=== PATIENT | female | born 1945 | race Caucasian/White ===

== ENCOUNTER 2017-02-28 11:01 | Emergency (ER) | payer OTHER, MEDICARE ==
--- NOTE | 2017-02-28 11:29 | ED UPPER/LOWER EXTREMITY COMPL ---
History of Present Illness General Chief Complaint: Foot or Ankle Injury Stated Complaint: L FT INJURY Source: patient Exam Limitations: no limitations Vital Signs & Intake/Output Vital Signs & Intake/Output Vital Signs Date Time Temp Pulse Resp B/P B/P Pulse O2 O2 Flow FiO2 Mean Ox Delivery Rate 02/28 1254 97.6 81 18 149/69 94 Room Air 02/28 1104 98.1 102 18 126/94 95 Room Air Allergies Coded Allergies: MDX - Clarithromycin (From BIAXIN) (UNKNOWN 06/15/13) MDX - Codeine (CODEINE) (UNKNOWN 06/15/13) MDX - Contrast Media, Iodine Relate (Contrast Media, Iodine Related) (UNKNOWN ) MDX - Penicillin (PENICILLIN) (RASH 06/15/13) MDX - Rosuvastatin (From CRESTOR) (UNKNOWN 06/15/13) Triage Note: PT TO ED STATING SHE THINKS SHE BROKE HER LT FOOT. WAS WALKING UP A STEP AND FELT A CRACK. STATES IS UNABLE TO BEAR WEIGHT ON HER FOOT. Triage Nurses Notes Reviewed? yes Onset: Abrupt Duration: constant Timing: recent history Severity: severe Severity Numbers: 7 HPI: Patient is a 71-year-old female presents emergency room with concerns of left bottom of the foot pain that began acutely while patient was in a weight-bearing position while walking when she suddenly complained of pain last evening. Patient denies any mechanism injury twisting or trauma. Patient states that ambulation makes worse. Denies any ankle pain patient does state that she has "bad knees" and will need knee replacements however she denies any worsening pain to the knee patient denies any swelling rash paresthesia. Patient has been taking NSAIDs with mild relief of symptoms. Patient does state that she has had similar symptom in the past where she has had acute onset of plantar fascia tear. (MANNY PRO) Past History Travel History Traveled to [place] past 21 day No Medical History Any Pertinent Medical History? see below for history Psychiatric: bipolar disease, depression Surgical History Surgical History: non-contributory Psychosocial History What is your primary language [place] Tobacco Use: Never used Family History Hx Contributory? No (MANNY PRO) Review of Systems Review of Systems Constitutional: Reports: no symptoms. EENTM: Reports: no symptoms. Respiratory: Reports: no symptoms. Cardiovascular: Reports: no symptoms. Gastrointestinal/Abdominal: Reports: no symptoms. Genitourinary: Reports: no symptoms. Musculoskeletal: Reports: see HPI. Skin: Reports: no symptoms. Neurological/Psychological: Reports: no symptoms. Hematologic/Endocrine: Reports: no symptoms. Immunological: Reports: no symptoms. All Other Systems: Reviewed and Negative (MANNY PRO) Physical Exam Physical Exam General Appearance: no apparent distress, alert, comfortable Neurologic/Tendon: normal sensation, normal motor functions, normal tendon functions, responds to pain, no evidence tendon injury Skin: intact, normal color, warm/dry Comments: Well-developed well-nourished no apparent distress. HEENT: Atraumatic, extraocular motion intact Neck: Supple, no lymphadenopathy Back: Nontender Respiratory: No respiratory distress Extremities: Left knee normal inspection Left ankle normal inspection nontender full active range of motion Left foot- normal inspection, noted point tenderness to plantar aspect of foot passive range of motion of the great toe of extension reproduced plantar foot pain. Neuro: Alert and oriented x3 Psych: Mood affect normal, normal memory normal judgment. (MANNY PRO) Progress Differential Diagnosis: arterial insufficiency, compartment syndrome, contusion, dislocation, DVT, fracture, gout, septic arthritis, sprain, tendon injury Plan of Care: Orders Procedure Date/time Status XRY-FOOT COMPLETE, LEFT 02/28 1106 Active Patient currently is resting comfortably at bedside. Patient has consented to the plantar fascia pain Patient declined pain medications when offered\\\\ No osseous injury noted on x-rays. Patient was given a prescription of a walker for weightbearing as tolerated. Patient was strongly advised to follow up with established oceanography teacher on Wednesday patient was given x-ray copies for follow-up. (MANNY PRO) Diagnostic Imaging: Viewed by Me: Radiology Read. Radiology Impression: no fracture Comments: PATIENT: STEVE ERWIN PRESENT AGE: 71 PATIENT ACCOUNT NO: [id number] : 46 LOCATION: [facility] ORDERING PHYSICIAN: MANNY GARRETT SERVICE DATE: 02/28/17 EXAM TYPE: RAD - XRY-FOOT COMPLETE, LEFT EXAMINATION: XR FOOT, LEFT CLINICAL INFORMATION: [place] crack last night. Unable to bear weight. COMPARISON: None TECHNIQUE: AP, lateral, and oblique views of the left foot. FINDINGS: The left foot is inverted on the AP view. The bones are osteopenic. No fracture or dislocation or acute osseous abnormality is seen. Plantar and posterior calcaneal spurs are seen. IMPRESSION: Osteopenia. No fracture or dislocation is seen. Normal alignment. DICTATED BY: SEKOU MILLER MD DATE/TIME DICTATED:02/28/17 (MANNY PRO) Departure Departure Disposition: HOME OR SELF CARE Condition: Stable Clinical Impression Primary Impression: Left foot pain Referrals: JOHNNY RUBIO MD (PCP/Family) Additional Instructions: As discussed begin icing the area directly 20 minutes every 2 hours. Continue [id number] ibuprofen as directed for pain and inflammation. Begin using the prescription of the assisted walker for fall prevention and please discontinue when you can walk without pain. On Wednesday follow-up with your established oceanography teacher and please provide the oceanography teacher with the copy of the x- rays provided to the emergency room. If symptoms worsen return to emergency room Obtain the walker at a medical recruiter store Departure Forms: Customer Survey General Discharge Information (MANNY PRO) PA/JIG OPERATOR Co-Sign Statement Statement: ED Attending supervision documentation- x I saw and evaluated the patient. I have also reviewed all the pertinent lab results and diagnostic results. I agree with the findings and the plan of care as documented in the PA's/JIG OPERATOR's documentation. [] I have reviewed the ED Record and agree with the PA's/JIG OPERATOR's documentation. [] Additions or exceptions (if any) to the PAs/JIG OPERATOR's note and plan are summarized below: [] (DENISE QUINTERO,CLAUDIA)
--- NOTE | 2017-02-28 12:18 | RADIOLOGY REPORT ---
EXAMINATION: XR FOOT, LEFT CLINICAL INFORMATION: [place] crack last night. Unable to bear weight. COMPARISON: None TECHNIQUE: AP, lateral, and oblique views of the left foot. FINDINGS: The left foot is inverted on the AP view. The bones are osteopenic. No fracture or dislocation or acute osseous abnormality is seen. Plantar and posterior calcaneal spurs are seen. IMPRESSION: Osteopenia. No fracture or dislocation is seen. Normal alignment.
[2017-02-28 12:54] VITALS: BP 149/69
== END 2017-02-28 13:22 ==
LOC: ERH 11:01
DX: M79.672 Pain in left foot (principal)
CPT/HCPCS: 73630-LT